=== PATIENT | female | born 1975 | race Caucasian/White ===

== ENCOUNTER 2017-05-15 12:27 | Emergency (ER) | payer OTHER ==
[2017-05-15] MEDS ORDERED: METHYLPREDNISOLONE INJ 125 MG/2 ML SDV IV ONE (12:42)
[2017-05-15] MEDS ORDERED: FAMOTIDINE INJ/PF 20 MG/2 ML SDV IV ONE (12:42)
[2017-05-15] MEDS ORDERED: NORMAL SALINE 1000 ML 1,000 ML IV ONE (12:43)
[2017-05-15] MEDS ORDERED: EPINEPHRINE INJ/PF 1 MG/1 ML AMPULE SUBCUT ONE (12:43)
--- NOTE | 2017-05-15 12:51 | ER Document Report ---
ED General - General Stated Complaint: POSSIBLE ALLERGIC REACTION Time Seen by Provider: 05/15/17 12:41 - HPI Notes: Patient is a 42-year-old female who presents the ED with an allergic reaction status post biting into shellfish prior to arrival. Patient states that she feels a tingling sensation in her tongue and her throat. Patient states that she chewed 100 mg of Benadryl prior to arrival. Patient also feels a tingling sensation to her lips as well. Patient denies any drug allergies or other significant medical history at this time. Denies any headache, fever, neck pain , changes in vision/speech/mentation/hearing, URI, hoarseness, drooling, trouble swallowing/breathing, sore throat, chest pain, palpitations, syncope, cough, shortness of breath, wheeze, dyspnea, abdominal pain, nausea/vomiting/ diarrhea,dysuria, hematuria, or rash. - Related Data Allergies/Adverse Reactions: shellfish derived Allergy (Verified 05/15/17 13:29) Past Medical History - Social History Smoking Status: Never Smoker Family History: Reviewed & Not Pertinent Review of Systems - Review of Systems Notes: REVIEW OF SYSTEMS: CONSTITUTIONAL : Denies fever, chills, or sweats. Denies recent illness. EENT: see hpi. no eye complaints CARDIOVASCULAR: Denies chest pain. Denies palpitations RESPIRATORY: Denies cough, cold, or chest congestion. Denies shortness of breath, difficulty breathing, or wheezing. GASTROINTESTINAL: Denies abdominal pain or distention. Denies nausea, vomiting , or diarrhea. Denies blood in vomitus, stools, or per rectum. Denies black, tarry stools. Denies constipation. GENITOURINARY: Denies difficulty urinating, painful urination, burning, frequency, blood in urine, or discharge. MUSCULOSKELETAL: Denies back or neck pain or stiffness. Denies joint pain or swelling. SKIN: Denies rash, lesions or sores. NEUROLOGICAL: Denies confusion or altered mental status. Denies passing out or loss of consciousness. Denies dizziness or lightheadedness. Denies headache. Denies weakness or paralysis or loss of use of either side. Denies problems with gait or speech. Denies sensory loss, numbness, or tingling. Denies seizures. ALL OTHER SYSTEMS REVIEWED AND NEGATIVE. Dictation was performed using Dragon voice recognition software Physical Exam - Vital signs Vitals: Temp BP 97.7 F 124/86 H 05/15/17 13:15 05/15/17 13:15 Notes: PHYSICAL EXAMINATION: GENERAL: Well-appearing, well-nourished and in no acute distress. A&Ox4 HEAD: Atraumatic, normocephalic. EYES: Pupils equal round and reactive to light, extraocular movements intact, sclera anicteric, conjunctiva are normal. ENT: Nares patent and without discharge. oropharynx clear without exudates. No tonsilar hypertrophy or erythema. Moist mucous membranes. No respiratory compromise. No obvious angioedema. NECK: Normal range of motion, supple without lymphadenopathy. no rigidity. LUNGS: Breath sounds clear to auscultation bilaterally and equal. No wheezes rales or rhonchi. HEART: Regular rate and rhythm without murmurs, rubs, gallops. ABDOMEN: Soft, nontender, nondistended abdomen. No guarding, no rebound. No masses appreciated. Normal bowel sounds present. No CVA tenderness bilaterally. Musculoskeletal: FROM to passive/active. Strength 5+/5. Extremities: No cyanosis, clubbing, or edema b/l. NEUROLOGICAL: MMSE intact. Cranial nerves grossly intact. Normal speech, normal gait. Normal sensory, motor exams PSYCH: Normal mood, normal affect. SKIN: Warm, Dry, normal turgor, no rashes or lesions noted. Course - Re-evaluation Re-evalutation: 05/15/17 12:40 Pt walked into the side door of the ED and came to me in the doc box. I did a quick triage and ordered meds. Epi 0.3mg 1:1000 given SC along with Solumedrol 125mg IV and Pepcid 20mg IV. Pt had 100mg benadryl PO CONSUMER ATTORNEY. fluids started and pt placed on monitor. There is no obvious respiratory compromise or angioedema. 05/15/17 13:00 Re-eval with patient and further H&P performed. Pt states resolution of all tingling/numbness/mouth-throat sensations and states is feeling much better. 05/15/17 14:57 Re-eval with patient. Doing well w/o any new concerns or complaints. No adventitious lung sounds. No angioedema. 05/15/17 16:52 Pt doing well. no new concerns or complaints. Pt ready to leave. Discharged in stable. D/c instructions as reviewed Recheck with PCM in 3-5 days Consider consult with perfume maker I will send her home with prednisone taper and epipen Rx. Patient to return to the ED with any worsening/concerning symptoms otherwise as reviewed discharge. Low suspicion for any other systemic emergent condition at this time including anaphylaxis, respiratory compromise, shock. Patient is aware that her condition can change from initial presentation and she needs to monitor symptoms closely and seek medical attention with any acute changes. Patient is in agreement. - Vital Signs Vital signs: Temp Pulse Resp BP Pulse Ox 97.7 F 16 123/74 97 05/15/17 13:15 05/15/17 15:01 05/15/17 15:01 05/15/17 15:01 Discharge - Discharge Clinical Impression: Allergic reaction Qualifiers: Encounter type: initial encounter Qualified Code(s): T78.40XA - Allergy, unspecified, initial encounter Condition: Stable Disposition: HOME, SELF-CARE Instructions: Acute Allergic Reaction ([facility]), Epinephrine, Steroid Medication Injection Additional Instructions: maintain adequate fluid/foot intake Monitor for any worsening symptoms Take steroid taper as directed Use Epipen as needed You may take Benadryl + Pepcid/zantac for allergic reactions if needed Monitor your blood pressure at home routinely Recheck with your PCM in 3-5 days Return to the ED with any worsening symptoms and/or development of fever, headache, hoarseness, drooling, swelling of lips/tongue/throat/mouth, chest pain , palpitations, syncope, shortness of breath, trouble breathing, wheezing, cough , abdominal pain, n/v/d, numbness/tingling, weakness, dizziness, or other worsening symptoms that are concerning to you. Prescriptions: Epinephrine [Epipen 2-Kp] 0.3 mg IJ PRN PRN #1 packet PRN Reason: Prednisone [Deltasone 10 mg Tablet] 10 mg PO ASDIR PRN #21 tablet PRN Reason: Forms: Elevated Blood Pressure, Return to Work Referrals: NANCI MCCALL MD [ACTIVE STAFF] - Follow up as needed
[2017-05-15 17:15] VITALS: BP 120/68
== END 2017-05-15 17:20 | disposition home or self-care (01) ==
LOC: ER 12:27
DX: R20.2 Paresthesia of skin (principal); T78.40XA Allergy, unspecified, initial encounter; X58.XXXA Exposure to other specified factors, initial encounter; Z91.013 Allergy to seafood
CPT/HCPCS: 99283; 96372; 96361; 96374; 96375; J0171; J2930; J7030; S0028

== ENCOUNTER 2018-10-08 07:49 | Day surgery (SDC) | payer OTHER ==
[~2018-10-08 07:49] MED LIST: DIPHENHYDRAMINE HCL 50 MG/ML VIAL ONE; EPINEPHRINE INJ 1 MG/10 ML DISP.SYRIN ONE; FLUMAZENIL INJ 0.5 MG/5 ML VIAL ONE; GLUCAGON,HUMAN RECOMB 1 MG INJ ONE; NALOXONE HCL INJ/PF 0.4 MG/1 ML SDV ONE; ONDANSETRON HCL INJ/PF 4 MG/2 ML SDV ONE
[2018-10-08] MEDS ORDERED: LIDOCAINE 2% JELLY 5 ML TUBE ONE (08:05)
[2018-10-08] MEDS: MIDAZOLAM 2 MG/2 ML INJ ONE ×3 (10:38→10:45)
[2018-10-08] MEDS: FENTANYL CITRATE INJ/PF 100 MCG/2 ML AMPUL ONE ×2 (10:40→10:43)
--- NOTE | 2018-10-08 11:12 | Operative Report ---
Nonrecallable Operative Report DATE OF SURGERY: 10/08/18 PREOPERATIVE DIAGNOSIS: gerd POSTOPERATIVE DIAGNOSIS: gerd OPERATION: esophagoscopy and ramon insertion SURGEON: ROCHELLE HERNANDEZ ANESTHESIA: Moderate Sedation COMPLICATIONS: none ESTIMATED BLOOD LOSS: 0 INTRAOPERATIVE FINDINGS: see dictation PROCEDURE: see dictation
--- NOTE | 2018-10-08 11:13 | Discharge Summary ---
Discharge Summary (SDC) - Discharge Final Diagnosis: gerd Date of Surgery: 10/08/18 Discharge Date: 10/08/18 Condition: Good Referrals: BILL PAZ [Primary Care Provider] - Discharge Activity: Activity As Tolerated Report the Following to Your Physician Immediately: Nausea, Vomiting
--- NOTE | 2018-10-08 11:23 | OPERATIVE REPORT E ---
Operative Report NAME: BETTY DARLING : 1975 AGE: 43Y DATE OF SURGERY: 10/08/2018 ROOM: PREOPERATIVE DIAGNOSIS: Gastroesophageal reflux disease. POSTOPERATIVE DIAGNOSIS: Gastroesophageal reflux disease. OPERATIVE PROCEDURE: Esophagoscopy with Cespedes capsule placement. SURGEON: ROCHELLE HERNANDEZ M.D. ANESTHESIA: IV sedation. PROCEDURE: The patient was brought to the endoscopy suite, awake, alert, in stable condition. Appropriate time out was accomplished. The patient was given hurricane spray for posterior pharynx anesthesia and then given IV sedation using Versed and Fentanyl. After appropriate time out the Olympus gastroscope was placed into the mouth through the posterior pharynx into the proximal esophagus. We were able to advance down the proximal esophagus to the GE junction. We noted the Z line to be at 38 cm. Examination of the proximal stomach revealed a normal rugae pattern without any evidence of gastritis. The scope was then withdrawn. The Cespeeds capsule carrier was then placed into the posterior stomach and manipulated to 32 cm from the teeth. Suction was applied and the capsule was ejected from the carrier. The carrier was then removed. The patient was then rescoped. The capsule was noted to be attached to the esophageal mucosa at 32 cm. The scope was then removed, which completed the procedure. The estimated blood loss was negligible, and no specimens were obtained. The patient was then placed in a supine position and taken to recovery in stable condition. DICTATING PHYSICIAN: ROCHELLE HERNANDEZ M.D. [id number] PHY#: [id number] ID: [id number] JOB#: [id number] ACCT: [id number] cc:ROCHELLE HERNANDEZ M.D. >
[2018-10-08 12:20] VITALS: BP 117/73
== END 2018-10-08 12:05 | disposition home or self-care (01) ==
LOC: END 07:49
PROVIDERS: ATTEND Surgery
DX: K21.9 Gastro-esophageal reflux disease without esophagitis (principal); E03.9 Hypothyroidism, unspecified; G62.9 Polyneuropathy, unspecified; Z85.820 Personal history of malignant melanoma of skin; Z79.899 Other long term (current) drug therapy; Z91.041 Radiographic dye allergy status
CPT/HCPCS: 43235; 91010; 91035; J2250; J3010; J0171; J1200; J1610; J2310; J2405; J3490

== ENCOUNTER 2019-05-23 05:54 | Observation (INO) | payer OTHER ==
[2019-05-16 10:05] LABS: HEMATOCRIT 42.1 % (36.0-47.0); HEMOGLOBIN 14.6 g/dL (12.0-15.5); MEAN CORPUSCULAR HEMOGLOBIN 29.6 pg (27.0-33.4); MEAN CORPUSCULAR HGB CONC 34.6 g/dL (32.0-36.0); MEAN CORPUSCULAR VOLUME 86 fl (80-97); PLATELET COUNT 285 10^3/uL (150-450); RED BLOOD COUNT 4.92 10^6/uL (3.72-5.28); RED CELL DISTRIBUTION WIDTH 12.9 % (11.5-14.0); WHITE BLOOD COUNT 10.4 10^3/uL (4.0-10.5)
[2019-05-16 10:28] LABS: ANION GAP 9 (5-19); BLOOD UREA NITROGEN 14 mg/dL (7-20); CALCIUM 9.8 mg/dL (8.4-10.2); CARBON DIOXIDE 24 mmol/L (22-30); CHLORIDE 105 mmol/L (98-107); GLUCOSE 89 mg/dL (75-110); POTASSIUM 4.1 mmol/L (3.6-5.0)
--- NOTE | 2019-05-16 18:16 | EKG REPORT ---
SEVERITY:- NORMAL ECG - SINUS RHYTHM : Confirmed by: Peter Martinez MD 16-May-2019 18:16:04
[~2019-05-23 05:54] MED LIST changes: +ACETAMINOPHEN 1,000 MG/100 ML RTUPB IV ONE; +ACETAMINOPHEN 1,000 MG/100 ML RTUPB IV PRN; +CEFAZOLIN SODIUM 2 GM in DEXTROSE 5%-WATER 100 ML IV PRN; -DIPHENHYDRAMINE HCL 50 MG/ML VIAL ONE; -EPINEPHRINE INJ 1 MG/10 ML DISP.SYRIN ONE; -FLUMAZENIL INJ 0.5 MG/5 ML VIAL ONE; -GLUCAGON,HUMAN RECOMB 1 MG INJ ONE; +IBUPROFEN 800 MG in NORMAL SALINE 250 ML IV PRN; +LACTATED RINGERS 1000 ML IV PRN; +LIDOCAINE 0.5% INJ-PF (5 MG/ML) 50 ML SDV SUBCUT PRN; -NALOXONE HCL INJ/PF 0.4 MG/1 ML SDV ONE; -ONDANSETRON HCL INJ/PF 4 MG/2 ML SDV ONE
[2019-05-23] MEDS ORDERED: ONDANSETRON HCL INJ/PF 4 MG/2 ML SDV ONE ×2 (06:56→10:00)
[2019-05-23] MEDS ORDERED: FAMOTIDINE INJ/PF 20 MG/2 ML SDV IV ONE (06:56)
[2019-05-23] MEDS ORDERED: HYDROMORPHONE HCL INJ/PF 2 MG/ML AMPULE ONE (06:58)
[2019-05-23] MEDS ORDERED: FENTANYL CITRATE INJ/PF 250 MCG/5 ML AMPULE ONE (06:58)
[2019-05-23] MEDS ORDERED: DIPHENHYDRAMINE HCL 50 MG/ML VIAL ONE (06:58)
[2019-05-23] MEDS ORDERED: MIDAZOLAM 2 MG/2 ML INJ ONE (06:58)
[2019-05-23] MEDS ORDERED: PROPOFOL INJ 200 MG/20 ML VIAL IV ONE (06:58)
[2019-05-23] MEDS ORDERED: FAMOTIDINE INJ/PF 20 MG/2 ML SDV IV PRN (07:21)
[2019-05-23] MEDS ORDERED: BUPIVACAINE HCL 0.25 % INJ/PF (2.5 MG/1 ML) 30 ML VIAL ONE (07:22)
[2019-05-23] MEDS ORDERED: ONDANSETRON HCL INJ/PF 4 MG/2 ML SDV IV PRN ×2 (07:22→11:01)
[2019-05-23] MEDS ORDERED: FENTANYL CITRATE INJ/PF 100 MCG/2 ML AMPUL IV PRN ×3 (08:06)
[2019-05-23] MEDS ORDERED: MEPERIDINE HCL/PF INJ 25 MG/1 ML DISP.SYRIN IV PRN (08:06)
[2019-05-23] MEDS ORDERED: DIPHENHYDRAMINE HCL 50 MG/ML VIAL IV PRN (08:06)
[2019-05-23] MEDS ORDERED: MORPHINE SULFATE 10 MG/ML INJ IV PRN ×2 (08:06→10:44)
[2019-05-23] MEDS ORDERED: PROMETHAZINE HCL INJ 25 MG/1 ML VIAL IV PRN (08:06)
[2019-05-23] MEDS ORDERED: NEOSTIGMINE METHYLSULFATE 10 MG/10 ML VIAL ONE (10:00)
[2019-05-23] MEDS ORDERED: SUCCINYLCHOLINE CHLORIDE INJ 200 MG/10 ML VIAL ONE (10:00)
[2019-05-23] MEDS ORDERED: PHENYLEPHRINE HCL INJ/PF 10 MG/1 ML SDV ONE (10:00)
[2019-05-23] MEDS ORDERED: METOCLOPRAMIDE HCL INJ/PF 10 MG/2 ML SDV ONE (10:00)
[2019-05-23] MEDS ORDERED: ROCURONIUM BROMIDE INJ 50 MG/5 ML VIAL IV ONE (10:00)
[2019-05-23] MEDS ORDERED: DEXAMETHASONE SOD PHOSPHATE INJ 4 MG/1 ML VIAL ONE (10:00)
[2019-05-23] MEDS ORDERED: GLYCOPYRROLATE 1 MG/5 ML VIAL ONE (10:00)
[2019-05-23] MEDS ORDERED: DEXTROSE 5%-LACTATED RINGERS 1,000 ML IV PRN (10:44)
[2019-05-23] MEDS: FENTANYL CITRATE INJ/PF 100 MCG/2 ML AMPUL ONE ×2 (11:10→11:15)
[2019-05-23] MEDS: HYDROCOD/ACETAMIN 7.5-325 MG/15 ML ORAL SOLN UDCUP PO PRN ×3 (12:19→21:31)
[2019-05-23] MEDS: SIMETHICONE 80 MG TAB.CHEW PO PRN (20:06)
[2019-05-23] MEDS: FAMOTIDINE INJ/PF 20 MG/2 ML SDV IV SCH (22:55)
[2019-05-24] MEDS ORDERED: LIDOCAINE 0.5% INJ-PF (5 MG/ML) 50 ML SDV SUBCUT PRN (05:00)
[2019-05-24] MEDS ORDERED: LACTATED RINGERS 1000 ML IV PRN (05:00)
[2019-05-24] MEDS: HYDROCOD/ACETAMIN 7.5-325 MG/15 ML ORAL SOLN UDCUP PO PRN ×2 (05:11→12:41)
[2019-05-24 05:17] LABS: ABSOLUTE LYMPHOCYTES (AUTO) 1.8 10^3/uL (0.5-4.7); ABSOLUTE MONOCYTES (AUTO) 0.8 10^3/uL (0.1-1.4); ABSOLUTE NEUT (AUTO) 9.9 10^3/uL (1.7-8.2); BASOPHILS % (AUTO) 0.2 % (0-2); HEMATOCRIT 39.5 % (36.0-47.0); HEMOGLOBIN 13.4 g/dL (12.0-15.5); LYMPHOCYTES % (AUTO) 14.7 % (13-45); MEAN CORPUSCULAR HEMOGLOBIN 28.9 pg (27.0-33.4); MEAN CORPUSCULAR HGB CONC 33.9 g/dL (32.0-36.0); MEAN CORPUSCULAR VOLUME 85 fl (80-97); MONOCYTES % (AUTO) 6.6 % (3-13); PLATELET COUNT 264 10^3/uL (150-450); RED BLOOD COUNT 4.62 10^6/uL (3.72-5.28); RED CELL DISTRIBUTION WIDTH 13.1 % (11.5-14.0); SEGMENTED NEUTROPHILS % (AUTO) 78.5 % (42-78); TOTAL CELLS COUNTED % (AUTO) 100 %; WHITE BLOOD COUNT 12.5 10^3/uL (4.0-10.5)
[2019-05-24] MEDS: SIMETHICONE 80 MG TAB.CHEW PO PRN (05:19)
[2019-05-24 05:38] LABS: ANION GAP 9 (5-19); BLOOD UREA NITROGEN 5 mg/dL (7-20); CALCIUM 9.1 mg/dL (8.4-10.2); CARBON DIOXIDE 24 mmol/L (22-30); CHLORIDE 108 mmol/L (98-107); GLUCOSE 106 mg/dL (75-110); POTASSIUM 3.9 mmol/L (3.6-5.0)
--- NOTE | 2019-05-24 09:56 | RADIOLOGY REPORT (SQ) ---
EXAM DESCRIPTION: CHEST SINGLE VIEW COMPLETED DATE/TIME: 05/24/2019 8:55 am REASON FOR STUDY: s/p roberto fundoplication. Pain with inspiration. COMPARISON: None. EXAM PARAMETERS: NUMBER OF VIEWS: One view. TECHNIQUE: Single frontal radiographic view of the chest acquired. RADIATION DOSE: NA LIMITATIONS: None. FINDINGS: LUNGS AND PLEURA: No opacities, masses or pneumothorax. No pleural effusion. Minimal atel ectasis at the left base. MEDIASTINUM AND HILAR STRUCTURES: No masses. Contour normal. HEART AND VASCULAR STRUCTURES: Heart normal in size. Normal vasculature. BONES: No acute findings. HARDWARE: None in the chest. OTHER: No other significant finding. IMPRESSION: Minimal left basilar atelectasis. TECHNICAL DOCUMENTATION: JOB ID: [id number] [employer]- All Rights Reserved Reading location - IP/workstation name: [email or web address]
[2019-05-24] MEDS: FAMOTIDINE INJ/PF 20 MG/2 ML SDV IV SCH (10:12)
--- NOTE | 2019-05-24 11:43 | PDOC DISCHARGE SUMMARY ---
General - Admit/Disc Date/PCP Admission Date/Primary Care Provider: 05/23/19 10:44 BILL PAZ Discharge Date: 05/24/19 - Discharge Diagnosis Final Diagnosis: Hiatal hernia and reflux. - Assessment Summary: This is a 44-year-old female with life limiting reflux and a small hiatal hernia. She was taken the operating room for repair for hiatal hernia with James fundoplication. Patient did well from surgery. She was taken to the floor in stable condition. She began tolerating a clear liquid diet on postoperative day #0. On postoperative day 1, she tolerated a full liquid diet. She was ambulating, and her pain was controlled with oral pain medication. By 05/24/2019, it was felt that she had reached maximal hospital benefit and was fit for discharge. - Additional Information Resuscitation Status: Full Code Discharge Diet: As Tolerated Discharge Activity: Balance Activity w/Rest, No Lifting Over 10 Pounds, No Lifting/Push/Pulling Referrals: BILL PAZ [Primary Care Provider] - Home Medications: Levothyroxine Sodium [Synthroid 0.1 mg Tablet] 100 mcg PO DAILY 10/08/18 Multivitamin [Multivitamins] 1 tab PO DAILY 10/08/18 Rabeprazole Sodium [Aciphex] 1 tab PO DAILY 10/08/18 Ranitidine HCl [Zantac] 1 tab PO DAILY 10/08/18 Additional Information: Discharge home. Diet as tolerated. Activity: No lifting more than 10 pounds x 6 weeks after surgery. Follow-up with me next week. Hayden 10/325 mg p.o. every 6 hours as needed for pain. History of Present Illiness History of Present Illness: BETTY DARLING is a 44 year old female Physical Exam Vital Signs: Temp Pulse Resp BP Pulse Ox 98.0 F 73 16 111/56 L 97 05/24/19 08:29 05/24/19 08:29 05/24/19 08:29 05/24/19 08:29 05/24/19 08:29 Intake & Output 05/23/19 05/24/19 05/25/19 06:59 06:59 06:59 Intake Total 0 3300 Output Total 500 Balance 0 2800 Weight 97.07 kg Results Laboratory Results: WBC 12.5 10^3/uL (4.0-10.5) H 05/24/19 04:59 RBC 4.62 10^6/uL (3.72-5.28) 05/24/19 04:59 Hgb 13.4 g/dL (12.0-15.5) 05/24/19 04:59 Hct 39.5 % (36.0-47.0) 05/24/19 04:59 MCV 85 fl (80-97) 05/24/19 04:59 MCH 28.9 pg (27.0-33.4) 05/24/19 04:59 MCHC 33.9 g/dL (32.0-36.0) 05/24/19 04:59 RDW 13.1 % (11.5-14.0) 05/24/19 04:59 Plt Count 264 10^3/uL (150-450) 05/24/19 04:59 Lymph % (Auto) 14.7 % (13-45) 05/24/19 04:59 [place] % (Auto) 6.6 % (3-13) 05/24/19 04:59 Eos % (Auto) 0.0 % (0-6) 05/24/19 04:59 Baso % (Auto) 0.2 % (0-2) 05/24/19 04:59 Absolute Neuts (auto) 9.9 10^3/uL (1.7-8.2) H 05/24/19 04:59 Absolute Lymphs (auto) 1.8 10^3/uL (0.5-4.7) 05/24/19 04:59 Absolute Monos (auto) 0.8 10^3/uL (0.1-1.4) 05/24/19 04:59 Absolute Eos (auto) 0.0 10^3/uL (0.0-0.6) 05/24/19 04:59 Absolute Basos (auto) 0.0 10^3/uL (0.0-0.2) 05/24/19 04:59 Seg Neutrophils % 78.5 % (42-78) H 05/24/19 04:59 Sodium 140.7 mmol/L (137-145) 05/24/19 04:59 Potassium 3.9 mmol/L (3.6-5.0) 05/24/19 04:59 Chloride 108 mmol/L (98-107) H 05/24/19 04:59 Carbon Dioxide 24 mmol/L (22-30) 05/24/19 04:59 Anion Gap 9 (5-19) 05/24/19 04:59 BUN 5 mg/dL (7-20) L 05/24/19 04:59 Creatinine 0.67 mg/dL (0.52-1.25) 05/24/19 04:59 Est GFR ( Amer) > 60 (>60) 05/24/19 04:59 Est GFR (MDRD) Non-Af > 60 (>60) 05/24/19 04:59 Glucose 106 mg/dL (75-110) 05/24/19 04:59 Calcium 9.1 mg/dL (8.4-10.2) 05/24/19 04:59 Urine HCG, Qual NEGATIVE (NEGATIVE) 05/23/19 06:00 Blood Type A POSITIVE 05/23/19 06:40 Antibody Screen NEGATIVE 05/23/19 06:40 Impressions: Chest X-Ray 05/24/19 06:00 IMPRESSION: Minimal left basilar atelectasis.
--- NOTE | 2019-05-24 11:59 | Operative Report ---
Nonrecallable Operative Report DATE OF SURGERY: 05/23/19 PREOPERATIVE DIAGNOSIS: Reflux and hiatal hernia POSTOPERATIVE DIAGNOSIS: Same as above. OPERATION: 1. Robot-assisted laparoscopic hiatal hernia repair. 2. James fundoplication. 3. EGD. SURGEON: GONZALEZ BARRETT BIOLOGY TUTOR: CHE OTERO ANESTHESIA: GA TISSUE REMOVED OR ALTERED: None COMPLICATIONS: Mucosal trauma to the upper esophagus, likely related to bougie insertion. ESTIMATED BLOOD LOSS: 20 cc PROCEDURE: Drains/implants: None. Procedure in detail: After informed consent was obtained, the patient was brought to the operating room and laid in the supine position. The area of the abdomen was prepped and draped in a normal sterile fashion. A supraumbilical incision was created with a 15 blade scalpel. Dissection was carried through the subcutaneous tissues using sharp and blunt dissection. The anterior sheath was incised, the rectus muscle was spread, and the posterior sheath was incised sharply. The abdomen was entered sharply, and the balloon trocar was inserted. Pneumoperitoneum was at this time achieved. Left upper quadrant and left lateral 8 mm robotic trocars were placed under laparoscopic visualization. Another right upper quadrant trocar was placed in similar fashion. A right lateral 5 mm trocar was placed under direct visualization. The robot was then brought over the patient and docked appropriately. The liver retractor was placed on the patient and used to retract the left lobe of liver anteriorly. I then assumed my position at the surgeon's console. The dissection was begun at the pars flaccida. The patient had a large blood vessel extending through the pars flaccida, consistent with a replaced hepatic artery. This was left in situ, and spared from any injury. Dissection was carried to the right laura of the diaphragm using blunt dissection and electrocautery. Dissection was then carried posterior to the esophagus. The left laura was identified. Once this was completed, attention was turned to the division of the short gastric arteries. The robotic vessel sealer was used to divide the short gastric arteries up to the left laura of the diaphragm. The medial and lateral dissections were then joined. A grasper was placed behind the esophagus for retraction purposes. A good window was then created. The anterior dissection was then completed using electrocautery and blunt dissection. This was done with great care, so as not to injure the vagus nerves. The vagus nerves were identified and spared along their course. Next, anesthesia placed a 58 Syriac bougie into the esophagus. With the bougie in place, the crura were reapproximated using 2-0 Ethibond suture in [id number] fashion. The hiatal hernia was small. A mesh repair was felt to require much more dissection than was necessary. In light of this, it was felt prudent to omit a buttressing hernia mesh. There was approximately 3 cm of intra-abdominal esophagus present after the dissection. After this was confirmed, the fundus was wrapped posteriorly. The fundus wrapped easily around the esophagus. Next, the fundoplication was performed. The first suture was used to secure the wrapped fundus to the anterior fundus, incorporating a portion of the esophagus. 3 more sutures were placed inferiorly, securing wrapped fundus to anterior fundus. A gastropexy was then performed on the medial and lateral aspects. This secured the fundoplication to the crura. This was done with 2-0 Ethibond suture in simple interrupted fashion. After this was completed, attention was turned to performing of the EGD. A flexible scope was inserted into the oropharynx, and into the esophagus. In the cervical esophagus it was found to be a linear striation where the mucosa was damaged from introduction of the bougie. I believe this is related to the patient's history of upper esophageal stricture. The mucosal irregularity was not full-thickness. There was no evidence of dina perforation. There was a small amount of blood present, however it was easily irrigated and suctioned. There was no active bleeding. The gastroscope was inserted down the remainder of the esophagus. It was inserted into the stomach, through the hiatus. It passed easily through the fundoplication. A retroflexion maneuver was performed in the stomach showing an intact fundoplication. The scope was pulled up into the distal esophagus, which did not show any evidence of trauma or abnormality. The scope was then slowly withdrawn up the esophagus. The upper esophageal mucosal trauma was again examined, and felt to be superficial. The scope was then withdrawn from the oropharynx, and this portion of the procedure was concluded. I then scrubbed back into the case. The robot was undocked. The liver retractor was removed. Through laparoscopic means, the 12 mm trocar site was closed using the Raymond-Nerissa device and 0 Vicryl suture in [id number] fashion. The overlying skin was then closed using 4-0 Vicryl Rapide suture in subcuticular fashion. Dressings were placed, and the procedure was concluded. All sponge, instrument, and needle counts were correct x2. Condition: Stable. Che Otero PA-C was scrubbed and present the entirety the procedure. She assisted with all portions of the procedure including placement of the trochars, docking of the robot, exchanging of the robotic instruments, closure of the fascia, and closure of the skin.
[2019-05-24 12:37] VITALS: BP 128/66
== END 2019-05-24 13:00 | disposition home or self-care (01) ==
LOC: OROUT 05:54 → 2S 10:44
PROVIDERS: ADMIT Surgery; ATTEND Surgery
PROC: 8E0W4CZ Robotic Assisted Procedure of Trunk Region, Percutaneous Endoscopic Approach (ICD-10-PCS; 2019-05-23)
PROC: 0DJ08ZZ Inspection of Upper Intestinal Tract, Via Natural or Artificial Opening Endoscopic (ICD-10-PCS; 2019-05-23)
PROC: 0BQT4ZZ Repair Diaphragm, Percutaneous Endoscopic Approach (ICD-10-PCS; 2019-05-23)
PROC: 0DV44ZZ Restriction of Esophagogastric Junction, Percutaneous Endoscopic Approach (ICD-10-PCS; principal; 2019-05-23 07:30)
DX: K21.9 Gastro-esophageal reflux disease without esophagitis (principal); K44.9 Diaphragmatic hernia without obstruction or gangrene; K91.840 Postprocedural hemorrhage of a digestive system organ or structure following a digestive system procedure; Y83.8 Other surgical procedures as the cause of abnormal reaction of the patient, or of later complication, without mention of misadventure at the time of the procedure; Y81.3 Surgical instruments, materials and general- and plastic-surgery devices (including sutures) associated with adverse incidents; Y92.234 Operating room of hospital as the place of occurrence of the external cause; L40.50 Arthropathic psoriasis, unspecified; E03.9 Hypothyroidism, unspecified; G62.9 Polyneuropathy, unspecified; Z01.818 Encounter for other preprocedural examination; Z85.820 Personal history of malignant melanoma of skin; Z79.899 Other long term (current) drug therapy; Z87.19 Personal history of other diseases of the digestive system
CPT/HCPCS: 43235; 43281; S2900; 36415; 71045; 790; 80048; 81025; 85025; 85027; 86850; 86900; 86901; 93005; 93010; G0378; J0131; J0330; J0690; J1100; J1170; J1200; J1741; J2250; J2370; J2405; J2704; J2710; J2765; J3010; J3490; J7050; J7060; J7120; S0028

== ENCOUNTER 2019-06-18 09:45 | Day surgery (SDC) | payer OTHER ==
[~2019-06-18 09:45] MED LIST changes: -ACETAMINOPHEN 1,000 MG/100 ML RTUPB IV ONE; -LACTATED RINGERS 1000 ML IV PRN; -LIDOCAINE 0.5% INJ-PF (5 MG/ML) 50 ML SDV SUBCUT PRN
[2019-06-18] MEDS ORDERED: LIDOCAINE 1% INJ-PF (10 MG/ML) 30 ML SDV ONE (09:52)
[2019-06-18] MEDS ORDERED: SCOPOLAMINE HYDROBROMIDE 1.5 MG PATCH.TD72 ONE (11:21)
[2019-06-18] MEDS ORDERED: FAMOTIDINE INJ/PF 20 MG/2 ML SDV IV ONE (11:21)
[2019-06-18] MEDS ORDERED: ACETAMINOPHEN 1,000 MG/100 ML RTUPB IV ONE (11:28)
[2019-06-18] MEDS ORDERED: DEXAMETHASONE SOD PHOSPHATE INJ 4 MG/1 ML VIAL ONE (12:13)
[2019-06-18] MEDS ORDERED: ONDANSETRON HCL INJ/PF 4 MG/2 ML SDV ONE (12:13)
[2019-06-18] MEDS ORDERED: LIDOCAINE 2% INJ-PF (20 MG/ML) 10 ML AMPUL ONE (12:13)
[2019-06-18] MEDS ORDERED: DEXMEDETOMIDINE INJ 80 MCG/20 ML VIAL IV ONE (12:13)
[2019-06-18] MEDS ORDERED: PROPOFOL INJ 200 MG/20 ML VIAL IV ONE ×2 (12:13→13:36)
[2019-06-18] MEDS ORDERED: MIDAZOLAM 2 MG/2 ML INJ ONE (12:13)
[2019-06-18] MEDS ORDERED: FENTANYL CITRATE INJ/PF 100 MCG/2 ML AMPUL ONE (12:13)
[2019-06-18] MEDS ORDERED: BUPIVACAINE HCL 0.25 % INJ/PF (2.5 MG/1 ML) 30 ML VIAL ONE (12:14)
[2019-06-18] MEDS ORDERED: PROMETHAZINE HCL INJ 25 MG/1 ML VIAL IV PRN ×2 (13:10)
[2019-06-18] MEDS ORDERED: FENTANYL CITRATE INJ/PF 100 MCG/2 ML AMPUL IV PRN ×3 (13:10)
[2019-06-18] MEDS ORDERED: ONDANSETRON HCL INJ/PF 4 MG/2 ML SDV IV PRN (13:10)
[2019-06-18] MEDS ORDERED: MEPERIDINE HCL/PF INJ 25 MG/1 ML DISP.SYRIN IV PRN (13:10)
[2019-06-18] MEDS ORDERED: DIPHENHYDRAMINE HCL 50 MG/ML VIAL IV PRN (13:10)
[2019-06-18] MEDS ORDERED: OXYCODONE-ACETAMINOPHEN 5-325 MG TABLET PO PRN (14:41)
[2019-06-18] MEDS ORDERED: HYDROCOD/ACETAMIN 7.5-325 MG/15 ML ORAL SOLN UDCUP ONE (15:33)
[2019-06-18 17:01] VITALS: BP 112/73
--- NOTE | 2019-06-18 17:09 | WOMENS IMAGING REPORT ---
EXAM DESCRIPTION: WIRE LOC MAMMO COMPLETED DATE/TIME: 06/18/2019 10:52 am REASON FOR STUDY: N63.20 UNSPECIFIED LUMP IN THE LEFT BREAST, UNSPECIFIED QUADRANT R92.0 MAMMOGRAPH IC MICROCALCIFICATION FOUND ON DX IMAGING OF COMPARISON: None. TECHNIQUE: The calcifications in the left breast was localized mammographically using a grid marker . The skin of the breast was prepped in sterile fashion and local anesthesia was provided. The loca lization needle was advanced to the target. The tip was positioned adjacent to the target and confir med with two orthogonal views. Surgical dye was not injected for this procedure. The wire was placed through the needle and the hook engaged. Post procedure mammogram demonstrates satisfactory position of the needle and wire. Specimen radiograph demonstrates the intact localization wire as well as the targeted lesion within t he biopsy specimen. LIMITATIONS: None. FINDINGS: Procedure as above. Pathology: Pending. IMPRESSION: SUCCESSFUL NEEDLE LOCALIZATION OF THE LESION IN THE LEFT BREAST. FOLLOW-UP PER THE Oleg DALY'S SURGEON. TECHNICAL DOCUMENTATION: JOB ID: [id number] [employer]- All Rights Reserved Reading location - IP/workstation name: [email or web address]
--- NOTE | 2019-06-18 22:37 | Operative Report ---
Nonrecallable Operative Report DATE OF SURGERY: 06/18/19 PREOPERATIVE DIAGNOSIS: Suspicious microcalcifications of the left breast, upper outer quadrant POSTOPERATIVE DIAGNOSIS: Same as above OPERATION: Needle localization excisional left breast lumpectomy SURGEON: GONZALEZ GIRARD ANESTHESIA: LMAC TISSUE REMOVED OR ALTERED: Left breast lumpectomy COMPLICATIONS: None apparent ESTIMATED BLOOD LOSS: Minimal PROCEDURE: Drains/implants: None. Procedure in detail: After informed consent was obtained, the patient was b rought to the operating room and laid in the supine position. The area of the left breast was prepped and draped in a normal sterile fashion. The localization wire was seen emanating from the lateral portion of the left breast. A curvilinear incision was created in the area of the localization wire. Dissection was carried through the subcutaneous tissues using sharp dissection and electrocautery. The wire was brought into the field, and dissection was carried out adjacent to the wire. A core of tissue was removed, ensuring all breast tissue surrounding the wire was removed. Once the specimen was removed, it was placed onto the portable mammogram machine, and a mammogram was performed. The wire was found to be within the specimen completely, however the previously placed percutaneous marker was not identified. Secondary to this, additional margins were taken in the lateral, medial, and inferior positions. The marking clip was identified in the additional margin. At this time, the resection was completed. Hemostasis was achieved using electrocautery. The subcutaneous breast tissue was closed using 3-0 Vicryl suture in simple running fashion. The overlying skin was closed using 4-0 Vicryl Rapide suture in subcuticular fashion. A dressing was placed, and the procedure was concluded. All sponge, instrument, and needle counts were correct x2. Condition: Stable.
--- NOTE | 2019-06-18 22:39 | Discharge Summary ---
Discharge Summary (SDC) - Discharge Final Diagnosis: Suspicious microcalcifications of the left upper outer breast. Date of Surgery: 06/18/19 Discharge Date: 06/18/19 Forms: ASU Anesthesia D/C Instruction, Discharge POC-Surgical Service Treatment or Instructions: ACTIVITY NON STRENUOUS DIET TOLERATED WEAR SUPPORTIVE BRA 24 HOURS A DAY FOR 2 WEEKS OK TO REMOVE BRA AND SHOWER IN 48 HRS PERCOCET Q6H FOR PAIN Referrals: BILL PAZ [Primary Care Provider] - GONZALEZ GIRARD MD [ACTIVE STAFF] - 07/08/19 9:15 am Respiratory Treatments at Home: Deep Breathing/Coughing, Incentive Spirometer Discharge Activity: Balance Activity w/Rest, No Lifting Over 10 Pounds, No Lifting/Push/Pulling, No tub bath Home Care Assistance: None Needed Report the Following to Your Physician Immediately: Shortness of Breath, Nausea, Vomiting, Increase in Pain, Yellow Skin, Fever over 101 Degrees, Unusual Bleeding, Redness, Swelling, Warmth, Increased Soreness, Drainage-Foul Smelling
== END 2019-06-18 16:55 | disposition home or self-care (01) ==
LOC: OROUT 09:45
PROVIDERS: ATTEND Surgery
DX: N60.42 Mammary duct ectasia of left breast (principal); N60.12 Diffuse cystic mastopathy of left breast; R92.0 Mammographic microcalcification found on diagnostic imaging of breast; E03.9 Hypothyroidism, unspecified; G62.9 Polyneuropathy, unspecified; L40.50 Arthropathic psoriasis, unspecified; Z85.820 Personal history of malignant melanoma of skin; Z79.899 Other long term (current) drug therapy; Z01.818 Encounter for other preprocedural examination
CPT/HCPCS: 81025; 88307 ×2; 00400; 19281; 76098; 19301; J2250; J0690; J1100; J3010; J3490 ×3; J2405; J7060; J7050; J2704; S0028; J0131; J1741; 400; 88305

== ENCOUNTER → 2020-07-07 | Outpatient (CLI) | payer OTHER ==
[~2020-07-07] MED LIST changes: -ACETAMINOPHEN 1,000 MG/100 ML RTUPB IV PRN; -CEFAZOLIN SODIUM 2 GM in DEXTROSE 5%-WATER 100 ML IV PRN; +COVID-19 VACCINE (PFIZER)/PF 30 MCG/0.3 ML VIAL IM ONE; +EPINEPHRINE INJ/PF 1 MG/1 ML AMPULE IM PRN; -IBUPROFEN 800 MG in NORMAL SALINE 250 ML IV PRN
== END ==
LOC: EMPHEALTH 07:26
PROVIDERS: ATTEND Internal Medicine
DX: Z23 Encounter for immunization (principal)
CPT/HCPCS: 91300

== ENCOUNTER → 2020-07-28 | Outpatient (CLI) | payer OTHER | LOC: EMPHEALTH 07:38 | PROVIDERS: ATTEND Internal Medicine | DX: Z23 Encounter for immunization (principal) | CPT/HCPCS: 91300 ==